=== PATIENT | male | born 1995 | race Caucasian/White ===

== ENCOUNTER 2018-11-07 12:34 | Emergency (ER) | payer OTHER, SELFPAY ==
--- NOTE | 2018-11-07 13:54 | RAD ---
RIGHT HAND THREE VIEWS: History: Right hand injury. FINDINGS: Joint spaces are preserved. Soft tissue swelling over the medial aspect of the hand. No acute fractur e, dislocation, or aggressive osseous erosions. IMPRESSION: No acute osseous abnormalities are demonstrated. POS: TYRELL
== END 2018-11-07 13:50 | disposition home or self-care (01) ==
LOC: ERS 12:34
DX: M79.641 Pain in right hand (principal)

== ENCOUNTER 2023-12-14 07:18 | Emergency (ER) | payer BC, OTHER | END 2023-12-14 09:48 | disposition home or self-care (01) | LOC: ERS 07:18 | DX: S61.217A Laceration without foreign body of left little finger without damage to nail, initial encounter (principal); S80.02XA Contusion of left knee, initial encounter; S80.01XA Contusion of right knee, initial encounter; S40.812A Abrasion of left upper arm, initial encounter; S40.811A Abrasion of right upper arm, initial encounter; I49.3 Ventricular premature depolarization; V89.2XXA Person injured in unspecified motor-vehicle accident, traffic, initial encounter; Z55.6 Problems related to health literacy ==